=== PATIENT | female | born 1980 | race Hispanic/Latino ===

== ENCOUNTER 2022-08-09 10:57 | Emergency (ER) | payer OTHER ==
--- OUTSIDE RECORDS SUMMARY | 2022-08-09 11:01 | XMS REPORT | Continuity of Care Document ---
:1980 Author Organization [facility] t Address [address] [place] [address] Care Team Providers Name Role Phone No, Pcp [facility] Primary Care Physician Unavailable SHASHANK HENRY Attending Clinician Unavailable SHASHANK HENRY Admitting Clinician Unavailable Payers Payer Name Policy Type Policy Number Effective Date Expiration Date S ource Problems Condition Condition Condition Status Onset Resolution Last Treating Co mments Source Name Details Category Date Date Treatment Clinician Date Morbid Morbid Disease Recurre [facility] Symptomati Symptomati Disease [facility]is [facility] Hypothyroi Hypothyroi Disease Active [facility] dism dism 07[facility] Allergies, Adverse Reactions, Alerts Allergy Allergy Status Severity Reaction(s) Onset Inactive Treating Comm ents Source Name Type Date Date Clinician No Known DA Active [facility] NO KNOWN Allergy Active [facility] Social History Social Habit Start Date Stop Date Quantity Comments Source History of tobacco Occasional tobacco [facility] use smoker [facility] Alcohol intake 2018-07-24 2018-07-24 [facility]finding[facility] Medical Center History [facility] 2018-07-23 2018-07-[address] [facility] Alcohol Binge 00:00:00 00:00:[address] [facility] ter History [facility] 2018-07-23 2018-07-[address] [facility] Alcohol Frequency 00:00:00 00:00:00 Medical Center History [facility] 2018-07-23 2018-07-23 [address] [facility] Alcohol Std Drinks 00:00:00 00:00:00 [facility] Cigarettes smoked 2018-07-22 2018-07-22 [facility] current (pack per 00:00:00 00:00:00 Medical Center day) - Reported Tobacco use and 2018-07-22 2018-07-[address] [facility] exposure 00:00:00 00:00:00 non-user Medical Center Sex Assigned At [birth year] [facility] kes 00:00:00 00:00:00 Medical Center Smoking Status Start Date Stop Date Source Occasional tobacco smoker 2018-07-22 00:00:00 [facility] Medications Ordered Filled Start Stop Current Ordering Indication Dosage Frequency Signature Comments Components Source Medication Medication Date Date Medication? Clinician (SIG) Name Name levothyroxi Yes 125ug Take [address] ne 5-26 mcg by [facility] (SYNTHROID, 16:15: mouth Medic al LEVOTHROID) 46 Every Center 125 MCG morning on tablet an empty stomach. famotidine Yes 40mg QD Take [address] (PEPCID) 40 5-17 by mouth [facility] MG tablet 00:00: daily. Medica l [address] [place] [address] Immunizations Ordered Immunization Filled Immunization Date Status Commen ts Source Name Name Moderna COVID-19 Moderna COVID-19 2020-08-14 Completed Vaccine Vaccine 00:00:00 Moderna COVID-19 Moderna COVID-19 2020-07-17 Completed Vaccine Vaccine 00:00:00 Procedures This patient has no known procedures. Encounters Start End Encounter Admission Attending Care Care Encounter Source Date/Time Date/Time Type Type Clinicians Facility Department ID 2019-03-09 Inpatient [facility] [id number] [facility] 19:42:00 57 [facility] 2020-08-14 2020-08-14 Outpatient GCCOVIDV GCCOVIDV [id number] [facility] 00:00:00 00:00:00 V 2020-07-17 2020-07-17 Outpatient GCCOVIDV GCCOVIDV [id number] [facility]OVID 00:00:00 00:00:00 V Results Test Description Test Time Test Comments Results Result Comments Source UR HCG QUAL 2019-03-09 21:48:00 Test Item Value Reference Range Interpretation Comme nts UR HCG NEGATIVE This HCGQL test is NOT applicable for MALE patients.Check with QUAL nurse about pro bable order error.If Tumor Marker Test needed, nurse (test should order te st "HCGTU"(Test code = #550.30342)---- HCGQLU) - XR CHEST 2 [id number] 20:55:00 FAX: Hugh Scott MD [place]: [facility]: REG FAX: Mookie Claire [phone] Name: JUSTYN BONILLA [facility] : 1980 Age/S: 39/F [address] [facility] Unit #: [id number] Loc: [place] [address] Phys: Mookie Claire [employer]ELDER [employer]ILER[employer]KER Acct: [id number] Dis Date: Status: REG ER PHONE #: [phone] Exam Date: 03/09/20192024 FAX #: [phone] Reason: COUGH EXAMS: CPT CODE: [id number] XR CHEST 2 V 71059 HISTORY: COUGH TECHNIQUE: PA and lateral chest x-ray COMPARISON: 09/01/12 FINDINGS: No airspace consolidation or pleural effusion. Normal heart size. Mediastinal silhouette is unremarkable. Visualized osseous structures are grossly intact. IMPRESSION: No radiographic evidence of acute cardiopulmonary process. LOCATION: at 2054 Reported and signed by: Idania Jordan D.O. CC: Hugh Scott MD; Mookie Claire NP Technologist: STACIA CANTRELL RT(R) Trnscrd Date/Time/By: 03/09/2019 (2054) : By: [email or web address] Orig Print D/T: S: 03/09/2019 (2057) PAGE 1 Signed ReportFUNGUS CULTURE + [id number] 19:02:00 Test Item Value Reference Range Interpretation Comments CULTURE (BEAKER) (test No fungus isolated in code = 1095) 28 days FUNGUS SMEAR (BEAKER) No fungi seen (test code = 1406) TISSUE [id number] 13:39:00Surgical Pathology Report Case: [id number] Authorizing Provider: Lois Abbott MD Collected: 07/23/20182012 Ordering Location: [facility] PERIOPERATIVE Received: 07/24/2018 0823 SERVICES Pathologist: Hay Pedraza MD Specimen: Gallbladder GALLBLADDER, CHOLECYSTECTOMY: - ACUTE ON CHRONIC CHOLECYSTITIS, CHOLESTEROLOSIS, AND CHOLELITHIASIS Signing Pathologist Direct Phone Line: [phone] by Hay Pedraza MD on 07/31/2018 at 1:39 [id number] cholecystectomy, possible intraoperative ch olangiogram, open cholecystectomyThe specimen is received in a single part labeled with the patient's name, date of and accession Number all of which which match the information provided on the requisition slip. Received in formalin in a container labeled "gallbladder" is fragmented and surgically disrupted gallbladder (5.1 x 3.9 x 2.3 cm, 2.5 x 1.5 x 0.9, and 1.5 x 1.2 x 0.3 cm) and two green-brown gallstones, one spherical (1.9 cm in diameter) and one hexahedral (2.1 x 2.1 x 2.1 cm). The serosa of the disrupted gallbladder is significantly hyperemic and erythematous. It is impossible to tell how much of the injury is iatrogenic and how much is pathogenic. The presumed cystic duct margin and the hepatic bed both inked blue. On opening the mucosa is markedly hyperemic with an ulcer just proximal to the cystic duct. Civil Drafting Technician sections are submitted. The gallbladder wall is on average, 0.5 cm thick and without any lesions. Section code: A1, cystic duct margin and section of ulcer; A2, life assurance representative section of gallbladder wall. EC/plPerformed.BLOOD CULTURE 2018-07-31 02:00:00 Test Item Value Reference Range Interpretation Comments CULTURE (BEAKER) (test No growth in 5 days code = 1095) BLOOD [id number] 20:01:00 Test Item Value Reference Range Interpretation Comments CULTURE (BEAKER) (test No growth in 5 days code = 1095) SURGICALLY OBTAINED CULTURE + GRAM [id number] 10:04:00 Test Item Value Reference Range Interpretation Comments CULTURE (BEAKER) A 1+ Viridans (test code = Streptococcus 1095) GRAM STAIN 1+ White blood RESULT (BEAKER) cells seen (test code = 1123) GRAM STAIN 3+ gram positive RESULT (BEAKER) cocci in chains (test code = and pairs [id number]) ANAEROBIC [id number] 07:23:00 Test Item Value Reference Range Interpretation Comments CULTURE (BEAKER) (test No anaerobes isolated code = 1095) BASIC METABOLIC [id number] 06:20:00 Test Item Value Reference Range Interpretation Comments SODIUM (BEAKER) 140 meq/L 136-145 (test code = 381) POTASSIUM (BEAKER) 3.8 meq/L 3.5-5.1 (test code = 379) CHLORIDE (BEAKER) 107 meq/L 98-107 (test code = 382) CO2 (BEAKER) (test 26 meq/L 22-29 code = 355) BLOOD UREA NITROGEN 11 mg/dL 7-21 (BEAKER) (test code = 354) CREATININE (BEAKER) 0.78 mg/dL 0.57-1.25 (test code = 358) GLUCOSE RANDOM 80 mg/dL 70-105 (BEAKER) (test code = 652) CALCIUM (BEAKER) 8.7 mg/dL 8.4-10.2 (test code = 697) EGFR (BEAKER) (test 83 mL/min/1.73 ESTIMA KATHY GFR IS code = 1092) sq m NOT ACCURATE CREATININE CLEARANCE IN PREDICTING GLOMERULAR FILTRATION RATE . ESTIMATED GFR I S NOT APPLICABLE FOR DIALYSIS PATIEN TS. CBC W/PLT COUNT & AUTO [id number] 05:57:00 Test Item Value Reference Range Interpretation Comments WHITE BLOOD CELL COUNT (BEAKER) 9.9 K/ L 3.5-10.5 (test code = 775) RED BLOOD CELL COUNT (BEAKER) 3.15 M/ L 3.93-5.22 L (test code = 761) HEMOGLOBIN (BEAKER) (test code = 10.0 GM/DL 11.2-15.7 L 410) HEMATOCRIT (BEAKER) (test code = 31.2 % 34.1-44.9 L 411) MEAN CORPUSCULAR VOLUME (BEAKER) 99.0 fL 79.4-94.8 H (test code = 753) MEAN CORPUSCULAR HEMOGLOBIN 31.7 pg 25.6-32.2 (BEAKER) (test code = 751) MEAN CORPUSCULAR HEMOGLOBIN CONC 32.1 GM/DL 32.2-35.5 L (BEAKER) (test code = 752) RED CELL DISTRIBUTION WIDTH 13.2 % 11.7-14.4 (BEAKER) (test code = 412) PLATELET COUNT (BEAKER) (test 283 K/CU MM 150-450 code = 756) MEAN PLATELET VOLUME (BEAKER) 9.3 fL 9.4-12.3 L (test code = 754) NUCLEATED RED BLOOD CELLS 0 /100 WBC 0-0 (BEAKER) (test code = 413) NEUTROPHILS RELATIVE PERCENT 76 % (BEAKER) (test code = 429) LYMPHOCYTES RELATIVE PERCENT 16 % (BEAKER) (test code = 430) MONOCYTES RELATIVE PERCENT 6 % (BEAKER) (test code = 431) EOSINOPHILS RELATIVE PERCENT 2 % (BEAKER) (test code = 432) BASOPHILS RELATIVE PERCENT 0 % (BEAKER) (test code = 437) NEUTROPHILS ABSOLUTE COUNT 7.50 K/ L 1.56-6.13 H (BEAKER) (test code = 670) LYMPHOCYTES ABSOLUTE COUNT 1.54 K/ L 1.18-3.74 (BEAKER) (test code = 414) MONOCYTES ABSOLUTE COUNT (BEAKER) 0.60 K/ L 0.24-0.36 H (test code = 415) EOSINOPHILS ABSOLUTE COUNT 0.20 K/ L 0.04-0.36 (BEAKER) (test code = 416) BASOPHILS ABSOLUTE COUNT (BEAKER) 0.02 K/ L 0.01-0.08 (test code = 417) IMMATURE GRANULOCYTES-RELATIVE 1 % 0-1 PERCENT (BEAKER) (test code = 2801) VANCOMYCIN LEVEL, [id number] 06:14:00 Test Item Value Reference Range Interpretation Comments VANCOMYCIN TROUGH (BEAKER) (test 16.6 ug/mL 10.0-20.0 code = 522) RAD, CHEST, 1 VIEW, NON [id number] 08:07:00Reason for exam:->fever, r/o pneumoniaShould this be performed at the bedside?->YesFINAL REPORT CLINICAL HISTORY: fever, pneumonia TECHNIQUE: 1 view of the chest. COMPARISON: None IMPRESSION: There is a suspected patchy airspace opacity at the lateral left lung base, which may be compatible with the clinical history of pneumonia. There is minimal right basilar atelectasis. There is no significant pleural fluid. The cardiomediastinal silhouette is magnified by technique. Signed: Nas Mustafa MDReport Verified Date/Time: 07/26/2018 08:07:53 Reading Location: [facility] Radiology Reading Room [id number] 06:57:00 Test Item Value Reference Range Interpretation Comments PHOSPHORUS (BEAKER) (test code = 2.5 mg/dL 2.3-4.7 604) [id number] 06:57:00 Test Item Value Reference Range Interpretation Comments MAGNESIUM (BEAKER) (test code = 2.0 mg/dL 1.6-2.6 627) BASIC METABOLIC [id number] 06:57:00 Test Item Value Reference Range Interpretation Comments SODIUM (BEAKER) 137 meq/L 136-145 (test code = 381) POTASSIUM (BEAKER) 3.5 meq/L 3.5-5.1 (test code = 379) CHLORIDE (BEAKER) 104 meq/L 98-107 (test code = 382) CO2 (BEAKER) (test 25 meq/L 22-29 code = 355) BLOOD UREA NITROGEN 8 mg/dL 7-21 (BEAKER) (test code = 354) CREATININE (BEAKER) 0.79 mg/dL 0.57-1.25 (test code = 358) GLUCOSE RANDOM 94 mg/dL 70-105 (BEAKER) (test code = 652) CALCIUM (BEAKER) 8.8 mg/dL 8.4-10.2 (test code = 697) EGFR (BEAKER) (test 81 mL/min/1.73 ESTIMA KATHY GFR IS code = 1092) sq m NOT ACCURATE CREATININE CLEARANCE IN PREDICTING GLOMERULAR FILTRATION RATE . ESTIMATED GFR I S NOT APPLICABLE FOR DIALYSIS PATIEN TS. CBC W/PLT COUNT & AUTO [id number] 06:42:00 Test Item Value Reference Range Interpretation Comments WHITE BLOOD CELL COUNT (BEAKER) 10.0 K/ L 3.5-10.5 (test code = 775) RED BLOOD CELL COUNT (BEAKER) 3.33 M/ L 3.93-5.22 L (test code = 761) HEMOGLOBIN (BEAKER) (test code = 10.6 GM/DL 11.2-15.7 L 410) HEMATOCRIT (BEAKER) (test code = 32.4 % 34.1-44.9 L 411) MEAN CORPUSCULAR VOLUME (BEAKER) 97.3 fL 79.4-94.8 H (test code = 753) MEAN CORPUSCULAR HEMOGLOBIN 31.8 pg 25.6-32.2 (BEAKER) (test code = 751) MEAN CORPUSCULAR HEMOGLOBIN CONC 32.7 GM/DL 32.2-35.5 (BEAKER) (test code = 752) RED CELL DISTRIBUTION WIDTH 12.8 % 11.7-14.4 (BEAKER) (test code = 412) PLATELET COUNT (BEAKER) (test 235 K/CU MM 150-450 code = 756) MEAN PLATELET VOLUME (BEAKER) 9.4 fL 9.4-12.3 (test code = 754) NUCLEATED RED BLOOD CELLS 0 /100 WBC 0-0 (BEAKER) (test code = 413) NEUTROPHILS RELATIVE PERCENT 76 % (BEAKER) (test code = 429) LYMPHOCYTES RELATIVE PERCENT 15 % (BEAKER) (test code = 430) MONOCYTES RELATIVE PERCENT 7 % (BEAKER) (test code = 431) EOSINOPHILS RELATIVE PERCENT 1 % (BEAKER) (test code = 432) BASOPHILS RELATIVE PERCENT 0 % (BEAKER) (test code = 437) NEUTROPHILS ABSOLUTE COUNT 7.53 K/ L 1.56-6.13 H (BEAKER) (test code = 670) LYMPHOCYTES ABSOLUTE COUNT 1.52 K/ L 1.18-3.74 (BEAKER) (test code = 414) MONOCYTES ABSOLUTE COUNT (BEAKER) 0.70 K/ L 0.24-0.36 H (test code = 415) EOSINOPHILS ABSOLUTE COUNT 0.14 K/ L 0.04-0.36 (BEAKER) (test code = 416) BASOPHILS ABSOLUTE COUNT (BEAKER) 0.04 K/ L 0.01-0.08 (test code = 417) IMMATURE GRANULOCYTES-RELATIVE 1 % 0-1 PERCENT (BEAKER) (test code = 2801) URINALYSIS W/ REFLEX URINE [id number] 14:22:00 Test Item Value Reference Range Interpretation Comments COLOR (BEAKER) (test code = 470) Yellow CLARITY (BEAKER) (test code = 469) Clear SPECIFIC GRAVITY UA (BEAKER) (test 1.006 1.001-1.035 code = 468) PH UA (BEAKER) (test code = 467) 6.0 5.0-8.0 PROTEIN UA (BEAKER) (test code = Negative Negative 464) GLUCOSE UA (BEAKER) (test code = Negative Negative 365) KETONES UA (BEAKER) (test code = Negative Negative 371) BILIRUBIN UA (BEAKER) (test code = Negative Negative 462) BLOOD UA (BEAKER) (test code = 461) Negative Negative NITRITE UA (BEAKER) (test code = Negative Negative 465) LEUKOCYTE ESTERASE UA (BEAKER) Negative Negative (test code = 466) UROBILINOGEN UA (BEAKER) (test code 0.2 mg/dL 0.2-1.0 = 463) RBC UA (BEAKER) (test code = 519) < /HPF WBC UA (BEAKER) (test code = 520) < /HPF BACTERIA (BEAKER) (test code = 517) Few SQUAMOUS EPITHELIAL (BEAKER) (test 2 /HPF code = 516) SOURCE(BEAKER) (test code = 6904) CBC W/PLT COUNT & AUTO [id number] 06:45:00 Test Item Value Reference Range Interpretation Comments WHITE BLOOD CELL COUNT 11.6 K/ L 3.5-10.5 H (BEAKER) (test code = 775) RED BLOOD CELL COUNT 3.51 M/ L 3.93-5.22 L (BEAKER) (test code = 761) HEMOGLOBIN (BEAKER) 11.3 GM/DL 11.2-15.7 (test code = 410) HEMATOCRIT (BEAKER) 34.3 % 34.1-44.9 (test code = 411) MEAN CORPUSCULAR 97.7 fL 79.4-94.8 H Discordant result VOLUME (BEAKER) (test compar ed to previous code = 753) result; clinica l correlation required. MEAN CORPUSCULAR 32.2 pg 25.6-32.2 HEMOGLOBIN (BEAKER) (test code = 751) MEAN CORPUSCULAR 32.9 GM/DL 32.2-35.5 HEMOGLOBIN CONC (BEAKER) (test code = 752) RED CELL DISTRIBUTION 13.0 % 11.7-14.4 WIDTH (BEAKER) (test code = 412) PLATELET COUNT 195 K/CU MM 150-450 (BEAKER) (test code = 756) MEAN PLATELET VOLUME 9.4 fL 9.4-12.3 (BEAKER) (test code = 754) NUCLEATED RED BLOOD 0 /100 WBC 0-0 CELLS (BEAKER) (test code = 413) NEUTROPHILS RELATIVE 81 % PERCENT (BEAKER) (test code = 429) LYMPHOCYTES RELATIVE 11 % PERCENT (BEAKER) (test code = 430) MONOCYTES RELATIVE 8 % PERCENT (BEAKER) (test code = 431) EOSINOPHILS RELATIVE 0 % PERCENT (BEAKER) (test code = 432) BASOPHILS RELATIVE 0 % PERCENT (BEAKER) (test code = 437) NEUTROPHILS ABSOLUTE 9.31 K/ L 1.56-6.13 H COUNT (BEAKER) (test code = 670) LYMPHOCYTES ABSOLUTE 1.23 K/ L 1.18-3.74 COUNT (BEAKER) (test code = 414) MONOCYTES ABSOLUTE 0.89 K/ L 0.24-0.36 H COUNT (BEAKER) (test code = 415) EOSINOPHILS ABSOLUTE 0.04 K/ L 0.04-0.36 COUNT (BEAKER) (test code = 416) BASOPHILS ABSOLUTE 0.02 K/ L 0.01-0.08 COUNT (BEAKER) (test code = 417) IMMATURE 1 % 0-1 GRANULOCYTES-RELATIVE PERCENT (BEAKER) (test code = 2801) [id number] 05:53:00 Test Item Value Reference Range Interpretation Comments MAGNESIUM (BEAKER) (test code = 2.0 mg/dL 1.6-2.6 627) BASIC METABOLIC [id number] 05:53:00 Test Item Value Reference Range Interpretation Comments SODIUM (BEAKER) 131 meq/L 136-145 L (test code = 381) POTASSIUM (BEAKER) 3.8 meq/L 3.5-5.1 (test code = 379) CHLORIDE (BEAKER) 99 meq/L 98-107 (test code = 382) CO2 (BEAKER) (test 22 meq/L 22-29 code = 355) BLOOD UREA NITROGEN 10 mg/dL 7-21 (BEAKER) (test code = 354) CREATININE (BEAKER) 0.89 mg/dL 0.57-1.25 (test code = 358) GLUCOSE RANDOM 92 mg/dL 70-105 (BEAKER) (test code = 652) CALCIUM (BEAKER) 8.3 mg/dL 8.4-10.2 L (test code = 697) EGFR (BEAKER) (test 71 mL/min/1.73 ESTIMA KATHY GFR IS code = 1092) sq m NOT ACCURATE CREATININE CLEARANCE IN PREDICTING GLOMERULAR FILTRATION RATE . ESTIMATED GFR I S NOT APPLICABLE FOR DIALYSIS PATIEN TS. HEPATIC FUNCTION [id number] 05:53:00 Test Item Value Reference Range Interpretation Comments TOTAL PROTEIN (BEAKER) (test code = 6.8 gm/dL 6.0-8.3 770) ALBUMIN (BEAKER) (test code = 1145) 3.4 g/dL 3.5-5.0 L BILIRUBIN TOTAL (BEAKER) (test code 0.7 mg/dL 0.2-1.2 = 377) BILIRUBIN DIRECT (BEAKER) (test 0.3 mg/dL 0.1-0.5 code = 706) ALKALINE PHOSPHATASE (BEAKER) (test 62 U/L 40-150 code = 346) AST (SGOT) (BEAKER) (test code = 37 U/L 5-34 H 353) ALT (SGPT) (BEAKER) (test code = 26 U/L 6-55 347) CBC W/PLT COUNT & AUTO [id number] 05:21:00 Test Item Value Reference Range Interpretation Comments WHITE BLOOD CELL COUNT (BEAKER) 18.8 K/ L 3.5-10.5 H (test code = 775) RED BLOOD CELL COUNT (BEAKER) 1.73 M/ L 3.93-5.22 L (test code = 761) HEMOGLOBIN (BEAKER) (test code = 5.5 GM/DL 11.2-15.7 LL 410) HEMATOCRIT (BEAKER) (test code = 17.8 % 34.1-44.9 L 411) MEAN CORPUSCULAR VOLUME (BEAKER) 102.9 fL 79.4-94.8 H (test code = 753) MEAN CORPUSCULAR HEMOGLOBIN 31.8 pg 25.6-32.2 (BEAKER) (test code = 751) MEAN CORPUSCULAR HEMOGLOBIN CONC 30.9 GM/DL 32.2-35.5 L (BEAKER) (test code = 752) RED CELL DISTRIBUTION WIDTH 13.1 % 11.7-14.4 (BEAKER) (test code = 412) PLATELET COUNT (BEAKER) (test 164 K/CU MM 150-450 code = 756) MEAN PLATELET VOLUME (BEAKER) 10.7 fL 9.4-12.3 (test code = 754) NUCLEATED RED BLOOD CELLS 0 /100 WBC 0-0 (BEAKER) (test code = 413) NEUTROPHILS RELATIVE PERCENT 77 % (BEAKER) (test code = 429) LYMPHOCYTES RELATIVE PERCENT 15 % (BEAKER) (test code = 430) MONOCYTES RELATIVE PERCENT 7 % (BEAKER) (test code = 431) EOSINOPHILS RELATIVE PERCENT 0 % (BEAKER) (test code = 432) BASOPHILS RELATIVE PERCENT 0 % (BEAKER) (test code = 437) NEUTROPHILS ABSOLUTE COUNT 14.41 K/ L 1.56-6.13 H (BEAKER) (test code = 670) LYMPHOCYTES ABSOLUTE COUNT 2.79 K/ L 1.18-3.74 (BEAKER) (test code = 414) MONOCYTES ABSOLUTE COUNT (BEAKER) 1.30 K/ L 0.24-0.36 H (test code = 415) EOSINOPHILS ABSOLUTE COUNT 0.07 K/ L 0.04-0.36 (BEAKER) (test code = 416) BASOPHILS ABSOLUTE COUNT (BEAKER) 0.05 K/ L 0.01-0.08 (test code = 417) IMMATURE GRANULOCYTES-RELATIVE 1 % 0-1 PERCENT (BEAKER) (test code = 2801) BASIC METABOLIC [id number] 07:24:00 Test Item Value Reference Range Interpretation Comments SODIUM (BEAKER) 137 meq/L 136-145 (test code = 381) POTASSIUM (BEAKER) 4.5 meq/L 3.5-5.1 (test code = 379) CHLORIDE (BEAKER) 104 meq/L 98-107 (test code = 382) CO2 (BEAKER) (test 25 meq/L 22-29 code = 355) BLOOD UREA NITROGEN 10 mg/dL 7-21 (BEAKER) (test code = 354) CREATININE (BEAKER) 0.82 mg/dL 0.57-1.25 (test code = 358) GLUCOSE RANDOM 98 mg/dL 70-105 (BEAKER) (test code = 652) CALCIUM (BEAKER) 8.6 mg/dL 8.4-10.2 (test code = 697) EGFR (BEAKER) (test 78 mL/min/1.73 ESTIMA KATHY GFR IS code = 1092) sq m NOT ACCURATE CREATININE CLEARANCE IN PREDICTING GLOMERULAR FILTRATION RATE . ESTIMATED GFR I S NOT APPLICABLE FOR DIALYSIS PATIEN TS. HEPATIC FUNCTION [id number] 07:24:00 Test Item Value Reference Range Interpretation Comments TOTAL PROTEIN (BEAKER) (test code = 6.7 gm/dL 6.0-8.3 770) ALBUMIN (BEAKER) (test code = 1145) 3.5 g/dL 3.5-5.0 BILIRUBIN TOTAL (BEAKER) (test code 0.7 mg/dL 0.2-1.2 = 377) BILIRUBIN DIRECT (BEAKER) (test 0.4 mg/dL 0.1-0.5 code = 706) ALKALINE PHOSPHATASE (BEAKER) (test 54 U/L 40-150 code = 346) AST (SGOT) (BEAKER) (test code = 58 U/L 5-34 H 353) ALT (SGPT) (BEAKER) (test code = 40 U/L 6-55 347) [id number] 06:08:00 Test Item Value Reference Range Interpretation Comments MAGNESIUM (BEAKER) (test code = 1.4 mg/dL 1.6-2.6 L 627) CBC W/PLT COUNT & AUTO [id number] 05:22:00 Test Item Value Reference Range Interpretation Comments WHITE BLOOD CELL COUNT (BEAKER) 16.5 K/ L 3.5-10.5 H (test code = 775) RED BLOOD CELL COUNT (BEAKER) 3.81 M/ L 3.93-5.22 L (test code = 761) HEMOGLOBIN (BEAKER) (test code = 12.2 GM/DL 11.2-15.7 410) HEMATOCRIT (BEAKER) (test code = 37.5 % 34.1-44.9 411) MEAN CORPUSCULAR VOLUME (BEAKER) 98.4 fL 79.4-94.8 H (test code = 753) MEAN CORPUSCULAR HEMOGLOBIN 32.0 pg 25.6-32.2 (BEAKER) (test code = 751) MEAN CORPUSCULAR HEMOGLOBIN CONC 32.5 GM/DL 32.2-35.5 (BEAKER) (test code = 752) RED CELL DISTRIBUTION WIDTH 13.1 % 11.7-14.4 (BEAKER) (test code = 412) PLATELET COUNT (BEAKER) (test 210 K/CU MM 150-450 code = 756) MEAN PLATELET VOLUME (BEAKER) 9.6 fL 9.4-12.3 (test code = 754) NUCLEATED RED BLOOD CELLS 0 /100 WBC 0-0 (BEAKER) (test code = 413) NEUTROPHILS RELATIVE PERCENT 89 % (BEAKER) (test code = 429) LYMPHOCYTES RELATIVE PERCENT 5 % (BEAKER) (test code = 430) MONOCYTES RELATIVE PERCENT 5 % (BEAKER) (test code = 431) EOSINOPHILS RELATIVE PERCENT 0 % (BEAKER) (test code = 432) BASOPHILS RELATIVE PERCENT 0 % (BEAKER) (test code = 437) NEUTROPHILS ABSOLUTE COUNT 14.70 K/ L 1.56-6.13 H (BEAKER) (test code = 670) LYMPHOCYTES ABSOLUTE COUNT 0.81 K/ L 1.18-3.74 L (BEAKER) (test code = 414) MONOCYTES ABSOLUTE COUNT (BEAKER) 0.82 K/ L 0.24-0.36 H (test code = 415) EOSINOPHILS ABSOLUTE COUNT 0.00 K/ L 0.04-0.36 L (BEAKER) (test code = 416) BASOPHILS ABSOLUTE COUNT (BEAKER) 0.01 K/ L 0.01-0.08 (test code = 417) IMMATURE GRANULOCYTES-RELATIVE 1 % 0-1 PERCENT (BEAKER) (test code = 2801) SCREEN, [id number] 11:31:00 Test Item Value Reference Range Interpretation Comments TEST URINE (BEAKER) (test Negative code = 583) HEMOGLOBIN [id number] 09:37:00 Test Item Value Reference Range Interpretation Comments HEMOGLOBIN A1C (BEAKER) (test code = 5.5 % 4.3-6.1 368) [id number] 08:34:00 Test Item Value Reference Range Interpretation Comments MAGNESIUM (BEAKER) (test code = 1.6 mg/dL 1.6-2.6 627) BASIC METABOLIC [id number] 08:34:00 Test Item Value Reference Range Interpretation Comments SODIUM (BEAKER) 135 meq/L 136-145 L (test code = 381) POTASSIUM (BEAKER) 4.3 meq/L 3.5-5.1 (test code = 379) CHLORIDE (BEAKER) 103 meq/L 98-107 (test code = 382) CO2 (BEAKER) (test 24 meq/L 22-29 code = 355) BLOOD UREA NITROGEN 7 mg/dL 7-21 (BEAKER) (test code = 354) CREATININE (BEAKER) 0.77 mg/dL 0.57-1.25 (test code = 358) GLUCOSE RANDOM 123 mg/dL 70-105 H (BEAKER) (test code = 652) CALCIUM (BEAKER) 9.3 mg/dL 8.4-10.2 (test code = 697) EGFR (BEAKER) (test 84 mL/min/1.73 ESTIMA KATHY GFR IS code = 1092) sq m NOT ACCURATE CREATININE CLEARANCE IN PREDICTING GLOMERULAR FILTRATION RATE . ESTIMATED GFR I S NOT APPLICABLE FOR DIALYSIS PATIEN TS. LIPID [id number] 08:34:00 Test Item Value Reference Range Interpretation Comments TRIGLYCERIDES (BEAKER) (test code = 40 mg/dL 540) CHOLESTEROL (BEAKER) (test code = 145 mg/dL 631) HDL CHOLESTEROL (BEAKER) (test code 61 mg/dL = 976) LDL CHOLESTEROL CALCULATED (BEAKER) 76 mg/dL (test code = 633) Triglyceride Reference Range: Low Risk <150 Borderline 150-199 High Risk 200- 499 Very High Risk >=500Cholesterol Reference Range: Low Risk <200 Borderline 200-239 High Risk >240HDL Cholesterol Reference Range: Low Risk >=60 High Risk <40LDL Cholesterol Reference Range: Optimal <100 Near Optimal 100-129 Borderline 130-159 High 160-189 Very High >=190HEPATIC FUNCTION [id number] 08:34:00 Test Item Value Reference Range Interpretation Comments TOTAL PROTEIN (BEAKER) (test code = 7.5 gm/dL 6.0-8.3 770) ALBUMIN (BEAKER) (test code = 1145) 4.0 g/dL 3.5-5.0 BILIRUBIN TOTAL (BEAKER) (test code 0.6 mg/dL 0.2-1.2 = 377) BILIRUBIN DIRECT (BEAKER) (test 0.2 mg/dL 0.1-0.5 code = 706) ALKALINE PHOSPHATASE (BEAKER) (test 63 U/L 40-150 code = 346) AST (SGOT) (BEAKER) (test code = 18 U/L 5-34 353) ALT (SGPT) (BEAKER) (test code = 14 U/L 6-55 347) CBC W/PLT COUNT & AUTO [id number] 06:33:00 Test Item Value Reference Range Interpretation Comments WHITE BLOOD CELL COUNT (BEAKER) 12.0 K/ L 3.5-10.5 H (test code = 775) RED BLOOD CELL COUNT (BEAKER) 4.13 M/ L 3.93-5.22 (test code = 761) HEMOGLOBIN (BEAKER) (test code = 13.2 GM/DL 11.2-15.7 410) HEMATOCRIT (BEAKER) (test code = 39.4 % 34.1-44.9 411) MEAN CORPUSCULAR VOLUME (BEAKER) 95.4 fL 79.4-94.8 H (test code = 753) MEAN CORPUSCULAR HEMOGLOBIN 32.0 pg 25.6-32.2 (BEAKER) (test code = 751) MEAN CORPUSCULAR HEMOGLOBIN CONC 33.5 GM/DL 32.2-35.5 (BEAKER) (test code = 752) RED CELL DISTRIBUTION WIDTH 13.0 % 11.7-14.4 (BEAKER) (test code = 412) PLATELET COUNT (BEAKER) (test 258 K/CU MM 150-450 code = 756) MEAN PLATELET VOLUME (BEAKER) 9.5 fL 9.4-12.3 (test code = 754) NUCLEATED RED BLOOD CELLS 0 /100 WBC 0-0 (BEAKER) (test code = 413) NEUTROPHILS RELATIVE PERCENT 82 % (BEAKER) (test code = 429) LYMPHOCYTES RELATIVE PERCENT 10 % (BEAKER) (test code = 430) MONOCYTES RELATIVE PERCENT 6 % (BEAKER) (test code = 431) EOSINOPHILS RELATIVE PERCENT 1 % (BEAKER) (test code = 432) BASOPHILS RELATIVE PERCENT 0 % (BEAKER) (test code = 437) NEUTROPHILS ABSOLUTE COUNT 9.88 K/ L 1.56-6.13 H (BEAKER) (test code = 670) LYMPHOCYTES ABSOLUTE COUNT 1.22 K/ L 1.18-3.74 (BEAKER) (test code = 414) MONOCYTES ABSOLUTE COUNT (BEAKER) 0.74 K/ L 0.24-0.36 H (test code = 415) EOSINOPHILS ABSOLUTE COUNT 0.09 K/ L 0.04-0.36 (BEAKER) (test code = 416) BASOPHILS ABSOLUTE COUNT (BEAKER) 0.02 K/ L 0.01-0.08 (test code = 417) IMMATURE GRANULOCYTES-RELATIVE 0 % 0-1 PERCENT (BEAKER) (test code = 2801) U/S, ABDOMINAL, [id number] 21:04:00Abdomen limited area? Add comment if clarification is needed.->Gall BladderReason for exam:->evaluate for cholecystitisFINAL REPORT Exam: Limited abdominal ultrasound. Clinical History: Abdominal pain. Comparison: No prior study for direct comparison. Findings: Sonographic evaluation of the right upper quadrant of the abdomen was performed. The study is limited due to excessive bowel gas. The study was prematurely terminated of the the patient refused to continue. Liver: 17.1 cm in length at the right midclavicular line. Diffusely echogenic. No definite lesion is identified by ultrasound. Patentmain portal vein with hepatopetal flow. Biliary tree: Not imaged. Gallbladder: 2.6 cm mobile shadowing stone. Top normal gallbladder wall thickness, nonspecific. No pericholecystic fluid. Positive sonographic Hernandez's sign. Pancreas: Obscured by bowel gas. Ascites: None seen. Right kidney: Not imaged.IVC/Aorta: Obscured by bowel gas. Impression:Limited exam due to premature termination and excessivebowel gas.Cholelithiasis and positive sonographic Hernandez's sign which may represent acute cholecystitis in the proper clinical setting. A HIDA scan may be performed to evaluate for cystic patency as clinically warranted.Mild hepatomegaly. Diffusely echogenic liver which may represent parenchymal disease such as steatosis. Signed: Chelsy Millereport Verified Date/Time: 07/22/2018 21:04:24 Reading Location: [facility] C013Y CT Body Reading Room PROTHROMBIN TIME/INR 2018-07-22 19:02:00 Test Item Value Reference Range Interpretation Comments PROTIME (BEAKER) (test code = 13.1 seconds 11.7-14.7 759) INR (BEAKER) (test code = 370) 1.0 <=5.9 RECOMMENDED COUMADIN/WARFARIN INR THERAPY RANGESSTANDARD DOSE: 2.0 - 3.0 Includes: PROPHYLAXIS for venous thrombosis, systemic embolization; TREATMENT for venous thrombosis and/or pulmonary embolus.HIGH RISK: Target INR is 2.5-3.5 for patients with mechanical heart valves. Notes Date/Time Note Provider Source 2019-03-09 20:02:00-00:00 [facility] ([facility]) EMERGENCY PROVIDER REPORT REPORT#:[id number] REPORT STATUS: Signed DATE:03/09/19 TIME: 2001 PATIENT: JUSTYN BONILLA UNIT #: [id number] ROOM/BED: AGE: 39 SEX: F PCP PHYS: No Primary or Family Ph ysician SERVICE AUTHOR: Mookie Claire NP * ALL edits or amendments must be made on the [employer]/computer document * HPI-URI/Cough/Cold General Confirmed Patient Yes Patient Type New patient Initial Greet Date/Time 03/09/191943 PCP NONE Presentation Chief Complaint Cough, non-p roductive, Nasal congestion, Runny nose, Upper resp infection Hx Obtained From Patient Severity: Current No pain currently Context Immunization Status General All up to date /Sexual Hx Last Menstrual Period 03/06/04 (JUST STOPPED IN 2004) Free Text HPI Notes Free Text HPI Notes Patient with complaint of co ugh, nasal congestion, and runny nose on and off x3 days. Denies any fever, rash, abdominal pain, na usea/vomiting/diarrhea, chest pain, shortness of breath, dysuria, headache, or any swelling. Review of Systems ROS Statements All systems rev neg except as marked. Basic Review of Systems Basic ROS CV: No chest pain, : No dysuria/frequency, MS: No ext swelling/pain, HEM: No bleeding/bruising, PSYCH: NL thought con tent Focused Review of Systems Ears/Nose/Throat Reports: Nasal congestion. Respiratory Reports: Cough, non-producti ve. Denies: Cough, productive, Dyspnea on exertion, Hemoptysis, Parox nocturnal dyspnea, Pleuritic p ain, Shortness of breath, Wheezing. Past Medical History - Adult Stated Complaint COUGHING Allergies Coded Allergies: No Known Allergies (09/01/12) Home Medications Reported Medications LEVOTHYROXINE (LEVOTHROID) 100 MCG PO DAILY LEVOTHYROXINE (LEVOTHROID) 125 MCG PO DAILY Review of Nursing Notes Unavailable at this time Pt reports no significant: Family history, Socia l history Past Medical History: Reports: Thyroid disorder. Past Surgical History: Reports: Cholecystectomy. Alcohol Use Denies EtOH use Drug Use Denies recreational drugs Smoking status for patients 13 years old or olde r: Current every day smoker Pack years (pk/d)*(yrs): 15 Date last smoked: still smoking Ambulatory Status Independent Physical Exam Vital Signs Vital Signs First Documented: Result Date Time Pulse Ox 100 03/09 1943 B/P 138/94 03/09 1943 B/P Mean 108 03/09 1943 O2 Delivery Room air 03/09 1943 Temp 36.9 03/09 1943 Pulse 72 03/09 1943 Resp 18 03/09 1943 FiO2 21 03/09 2153 Last Documented: Result Date Time Pulse Ox 96 03/09 2240 B/P 132/67 03/09 2240 B/P Mean 88 03/09 2240 O2 Delivery Room air 03/09 2240 Temp 37.2 03/09 2240 Pulse 70 03/09 2240 Resp 18 03/09 2240 FiO2 21 03/09 2153 Review of Vital Signs Reviewed Basic Physical Exam Basic PE HEAD: Atraumatic/NC, EYES: PERRL, conj clear, NECK: Supple, CV: Reg rate rhythm, ABD: Soft/non-tender, EXT: No gross abnormality, SKIN: No rashes, warm/dry, NEURO: alert oriented, NEURO: gross mo vement NL, PSYCH: NL thought content Focused PE General/Const General/Const Awake, Alert, Well appearing, Not toxic appearing Eyes Eyes PERRL Ears/Nose/Throat Ears/Nose/Throat Atraumatic, Airway patent, Muc ous membranes moist, No peritonsillar abscess, No po oling of secretions, No trismus, Tympanic membs NL, Ext aud canal NL, Mastoid ar ea NL, No sinus tenderness, No facial swelling, Gums /dentition NL Pharynx/Tonsils/Uvula Pharyngeal erythema (COBBLESTONE APPERENCE). Ne gative: Tonsillar erythema R, Tonsillar erythema L, Tonsillar exudate R, Tonsi llar exudate L, Tonsillar swelling R, Tonsillar swelling L, Peritonsil abs cess R, Peritonsil abscess L, Trismus present, Epiglottis enlarged, Epiglottis erythematous, Uvula deviated R, Uvula deviated L, Uvula edematous, Uvula enlarge d, Uvula erythematous. Nose Rhinorrhea, Turbinates swollen. MS Neck Neck Supple, No meningismus, Full range of motion, No adenopathy, No swelling , Non-tender Resp/Chest Respiratory/Chest Atraumatic, Breath so unds = bilat, No respiratory distress, No rales, No rhonchi, No ret ractions, No stridor, No chest tenderness, No chest wall deformity, No crepitus Wheezing/Retractions Wheezing expiratory, Wheezing mild. Cardiovascular Cardiovascular Heart rate NL, Regular rhythm, H eart sounds NL, Peripheral circulation NL Abdomen/GI Abdomen/GI Soft, Non-tender, No guarding, No re bound Skin Skin Color NL, No rash, Warm, Dry, Turgor NL Neurologic Neurologic Oriented X3, Speech NL, No motor def icits, No sensory deficits Interpretation Diagnostics Lab Results Interpretation Results Laboratory Tests: 03/09 2029 Urines Urine HCG, Qual NEGATIVE Microbiology: Date/Time Procedure - Status Source Growth 03/09 2114 Influenza Virus Type B Antigen - COM P NASAL 03/09 2114 Influenza Virus Type A Antigen - COM P NASAL Recent Impressions: RADIOLOGY - XR CHEST 2 V 03/09 2019 Report Impression - Status: SIGNED Entered: 03/09/20192057 IMPRESSION: No radiographic evidence of acute cardiopulmonar y process. LOCATION: [facility] Impression By: Ines Jordan D.O. Lab Imaging Statement Laboratory radiographic studies reviewed and con sidered in the medical decision-making. Point of Care Testing Micro Interpretation Influenza rapid - neg Pulse Oximetry Pulse Ox % 100 On: Room air Interpretation Interpreted by me, Pulse oximetr y normal Time 1943 Re-Evaluation MDM Re-Evaluation/Progress Re-Evaluation/Progress Text/Dict Note Wheezing resolved. Patient nontoxic appe aring. Patient reports feeling better. Explained in depth to patient on imaging, labs, and discharge instructions. Patient understands need to follow-up [facility] PCP. Patient ready to leave, return precautions given. Time of Re-Eval 2227 Exam Post Tx - General Active, Alert, Appears n on-toxic, Appears well, Vital signs stable, Capillary refill normal, Hydration normal Exam Post Tx - Sys Review Lungs clear, Wheezing resolved Plan Post Re-Eval Plan discharge URI/Flu Adult MDM Note The patient is now resting c omfortably, is alert and in no distress. The patient has a normal mental status and is neurologically intact. The patient appears well and is able to tolerate food or fluid by mouth, and there is no significant dehydration. There is no res piratory distress and no signs of systemic toxicity. The history, exam, diagnostic testing (if any) a nd current condition do not demonstrate an infectious process such as mening itis, severe pneumonia, retropharyngeal abscess, epiglottitis, sepsis or other serious bacterial infection requiring further testing, treatment, consultation, or admission at this time. The vital signs have been sta ble. The patient's condition is stable and appropriate for discharge. The patient will pursue further outpatient evaluation with the primary care physician or ot her designated or consulting physician as indicated in the discharge instruct ions. ED Course Time 2227 Patient Course Stable Medication(s) Ordered Medication(s) Ordered: Autonomic Drugs Sig/Christina Start time Last Medication Dose Route Stop Time Status Admin Albuterol/Ipratropium 6 ML X1ED STA 03/09 1999 DC 03/09 INH 03/09 2000 213 Hormones And Synthetic Substit Sig/Christina Start time Last Medication Dose Route Stop Time Status Admin Methylprednisolone 125 MG X1ED STA 03/09 1999 D C 03/09 Sodium Succinate IM 03/09 2000 212 Safety Concerns Patient is safe Patient Discharge Departure Vital Signs/Condition Vital Signs First Documented: Result Date Time Pulse Ox 100 03/09 1943 B/P 138/94 03/09 1943 B/P Mean 108 03/09 1943 O2 Delivery Room air 03/09 1943 Temp 36.9 03/09 1943 Pulse 72 03/09 1943 Resp 18 03/09 1943 FiO2 21 03/09 215 Last Documented: Result Date Time Pulse Ox 96 03/09 2240 B/P 132/67 03/09 2240 B/P Mean 88 03/09 2240 O2 Delivery Room air 03/09 2240 Temp 37.2 03/09 2240 Pulse 70 03/09 2240 Resp 18 03/09 2240 FiO2 21 03/09 215 All vital signs available at the time of this en try have been reviewed. Condition Stable Clinical Impression Clinical Impression Primary Impression: Bronchitis Disposition Decision Discharge )( Discharged to Home Yes )( Time 2228 )( Date 03/09/19 Discharge/Care Plan Counseled Regarding Diagnosi s, Lab results, Imaging studies, Prescriptions, Need for follow-up, When to return to ED Prescriptions Cetirizine, albuterol HFA, prednisone Prescriptions Reviewed Risks, Benefits, Alternat opal treatment Discharge Note I have spoken with the patie nt and/or caregivers. I have explained the patient's condition, diagnoses and courtney atment plan based on the information available to me at this time. I have answered the patient's and/ or caregiver's questions and addressed any concerns. The patient and/or careg megha have as good an understanding of the patient 's diagnosis, condition and treatment plan as can be expected at this point. The vital signs have bee n stable. The patient's condition is stable and appr opriate for discharge from the emergency department. The patient will pursue further outpatient evalu ation with the primary care physician or other designated or consulting phys ician as outlined in the discharge instructions. The patient and/or caregivers are agreeable to this plan of care and follow-up instructions have been exp lained in detail. The patient and/or caregivers have received these instructio ns in written format and have expressed an understanding of the discharge inst ructions. The patient and/or caregivers are aware that any significant change in condition or worsening of symptoms should prompt an immediate return to [facility] or the closest emergency department or a call to 911. Quality Measures BP F/U for HTN Referred for BP f/u < 4wk, F/u wi PCP/other doc Smoking Cessation Screened, tobacco user, Tobacc o cess intervention Electronically Signed by Mookie Claire NP o n 03/10/19 at 1505 RPT #:[id number] END OF REPORT 2019-03-09 20:02:00-00:00 [facility] ([facility]) EMERGENCY PROVIDER REPORT REPORT#:[id number] REPORT STATUS: Signed DATE:03/09/19 TIME: 2001 PATIENT: JUSTYN BONILLA UNIT #: [id number] ROOM/BED: AGE: 39 SEX: F PCP PHYS: No Primary or Family Ph ysician SERVICE AUTHOR: Mookie Claire NP * ALL edits or amendments must be made on the [employer]/computer document * Mookie Claire 03/09/19 2002: HPI-URI/Cough/Cold General Confirmed Patient Yes Patient Type New patient PCP NONE Presentation Chief Complaint Cough, non-p roductive, Nasal congestion, Runny nose, Upper resp infection Hx Obtained From Patient Severity: Current No pain currently Context Immunization Status General All up to date /Sexual Hx Last Menstrual Period 03/06/04 (JUST STOPPED IN 2004) Free Text HPI Notes Free Text HPI Notes Patient with complaint of co ugh, nasal congestion, and runny nose on and off x3 days. Denies any fever, rash, abdominal pain, na usea/vomiting/diarrhea, chest pain, shortness of breath, dysuria, headache, or any swelling. Review of Systems ROS Statements All systems rev neg except as marked. Basic Review of Systems Basic ROS CV: No chest pain, : No dysuria/frequency, MS: No ext swelling/pain, HEM: No bleeding/bruising, PSYCH: NL thought con tent Focused Review of Systems Ears/Nose/Throat Reports: Nasal congestion. Respiratory Reports: Cough, non-producti ve. Denies: Cough, productive, Dyspnea on exertion, Hemoptysis, Parox nocturnal dyspnea, Pleuritic p ain, Shortness of breath, Wheezing. Past Medical History - Adult Stated Complaint COUGHING Allergies Coded Allergies: No Known Allergies (09/01/12) Home Medications Reported Medications LEVOTHYROXINE (LEVOTHROID) 100 MCG PO DAILY LEVOTHYROXINE (LEVOTHROID) 125 MCG PO DAILY Review of Nursing Notes Unavailable at this time Pt reports no significant: Family history, Socia l history Past Medical History: Reports: Thyroid disorder. Past Surgical History: Reports: Cholecystectomy. Alcohol Use Denies EtOH use Drug Use Denies recreational drugs Smoking status for patients 13 years old or olde r: Current every day smoker Pack years (pk/d)*(yrs): 15 Date last smoked: still smoking Ambulatory Status Independent Physical Exam Vital Signs Vital Signs First Documented: Result Date Time Pulse Ox 100 03/09 1943 B/P 138/94 03/09 1943 B/P Mean 108 03/09 1943 O2 Delivery Room air 03/09 1943 Temp 36.9 03/09 1943 Pulse 72 03/09 1943 Resp 18 03/09 1943 FiO2 21 03/09 2153 Last Documented: Result Date Time Pulse Ox 96 03/09 2240 B/P 132/67 03/09 2240 B/P Mean 88 03/09 2240 O2 Delivery Room air 03/09 2240 Temp 37.2 03/09 2240 Pulse 70 03/09 2240 Resp 18 03/09 2240 FiO2 21 03/09 2153 Review of Vital Signs Reviewed Basic Physical Exam Basic PE HEAD: Atraumatic/NC, EYES: PERRL, conj clear, NECK: Supple, CV: Reg rate rhythm, ABD: Soft/non-tender, EXT: No gross abnormality, SKIN: No rashes, warm/dry, NEURO: alert oriented, NEURO: gross mo vement NL, PSYCH: NL thought content Focused PE General/Const General/Const Awake, Alert, Well appearing, Not toxic appearing Eyes Eyes PERRL Ears/Nose/Throat Ears/Nose/Throat Atraumatic, Airway patent, Muc ous membranes moist, No peritonsillar abscess, No po oling of secretions, No trismus, Tympanic membs NL, Ext aud canal NL, Mastoid ar ea NL, No sinus tenderness, No facial swelling, Gums /dentition NL Pharynx/Tonsils/Uvula Pharyngeal erythema (COBBLESTONE APPERENCE). Ne gative: Tonsillar erythema R, Tonsillar erythema L, Tonsillar exudate R, Tonsi llar exudate L, Tonsillar swelling R, Tonsillar swelling L, Peritonsil abs cess R, Peritonsil abscess L, Trismus present, Epiglottis enlarged, Epiglottis erythematous, Uvula deviated R, Uvula deviated L, Uvula edematous, Uvula enlarge d, Uvula erythematous. Nose Rhinorrhea, Turbinates swollen. MS Neck Neck Supple, No meningismus, Full range of motion, No adenopathy, No swelling , Non-tender Resp/Chest Respiratory/Chest Atraumatic, Breath so unds = bilat, No respiratory distress, No rales, No rhonchi, No ret ractions, No stridor, No chest tenderness, No chest wall deformity, No crepitus Wheezing/Retractions Wheezing expiratory, Wheezing mild. Cardiovascular Cardiovascular Heart rate NL, Regular rhythm, H eart sounds NL, Peripheral circulation NL Abdomen/GI Abdomen/GI Soft, Non-tender, No guarding, No re bound Skin Skin Color NL, No rash, Warm, Dry, Turgor NL Neurologic Neurologic Oriented X3, Speech NL, No motor de ficits, No sensory deficits Interpretation Diagnostics Lab Results Interpretation Results Laboratory Tests: 03/09 2029 Urines Urine HCG, Qual NEGATIVE Microbiology: Date/Time Procedure - Status Source Growth 03/09 2114 Influenza Virus Type B Antigen - COM P NASAL 03/09 2114 Influenza Virus Type A Antigen - COM P NASAL Recent Impressions: RADIOLOGY - XR CHEST 2 V 03/09 2019 Report Impression - Status: SIGNED Entered: 03/09/20192057 IMPRESSION: No radiographic evidence of acute cardiopulmonar y process. LOCATION: Impression By: Ines - Idania Nikki D.OWili Lab Imaging Statement Laboratory radiographic studies reviewed and con sidered in the medical decision-making. Point of Care Testing Micro Interpretation Influenza rapid - neg Pulse Oximetry Pulse Ox % 100 On: Room air Interpretation Interpreted by me, Pulse oximetr y normal Time 1943 Re-Evaluation MDM Re-Evaluation/Progress Re-Evaluation/Progress Text/Dict Note Wheezing resolved. Patient nontoxic appe aring. Patient reports feeling better. Explained in depth to patient on imaging, labs, and discharge instructions. Patient understands need to follow-up wi th PCP. Patient ready to leave, return precautions given. Time of Re-Eval 2227 Exam Post Tx - General Active, Alert, Appears n on-toxic, Appears well, Vital signs stable, Capillary refill normal, Hydration normal Exam Post Tx - Sys Review Lungs clear, Wheezing resolved Plan Post Re-Eval Plan discharge URI/Flu Adult MDM Note The patient is now resting c omfortably, is alert and in no distress. The patient has a normal mental status and is neurologically intact. The patient appears well and is able to tolerate food or fluid by mouth, and there is no significant dehydration. There is no res piratory distress and no signs of systemic toxicity. The history, exam, diagnostic testing (if any) a nd current condition do not demonstrate an infectious process such as mening itis, severe pneumonia, retropharyngeal abscess, epiglottitis, sepsis or other serious bacterial infection requiring further testing, treatment, consultation, or admission at this time. The vital signs have been sta ble. The patient's condition is stable and appropriate for discharge. The patient will pursue further outpatient evaluation with the primary care physician or ot her designated or consulting physician as indicated in the discharge instruct ions. ED Course Time 2227 Patient Course Stable Medication(s) Ordered Medication(s) Ordered: Autonomic Drugs Sig/Christina Start time Last Medication Dose Route Stop Time Status Admin Albuterol/Ipratropium 6 ML X1ED STA 03/09 1999 DC 03/09 INH 03/09 2000 213 Hormones And Synthetic Substit Sig/Christina Start time Last Medication Dose Route Stop Time Status Admin Methylprednisolone 125 MG X1ED STA 03/09 1999 D C 03/09 Sodium Succinate IM 03/09 Safety Concerns Patient is safe Patient Discharge Departure Vital Signs/Condition Vital Signs First Documented: Result Date Time Pulse Ox 100 03/09 1943 B/P 138/94 03/09 1943 B/P Mean 108 03/09 1943 O2 Delivery Room air 03/09 1943 Temp 36.9 03/09 1943 Pulse 72 03/09 1943 Resp 18 03/09 1943 FiO2 21 03/09 2153 Last Documented: Result Date Time Pulse Ox 96 03/09 2240 B/P 132/67 03/09 2240 B/P Mean 88 03/09 2240 O2 Delivery Room air 03/09 2240 Temp 37.2 03/09 2240 Pulse 70 03/09 2240 Resp 18 03/09 2240 FiO2 21 03/09 2153 All vital signs available at the time of this en try have been reviewed. Condition Stable Clinical Impression Clinical Impression Primary Impression: Bronchitis Disposition Decision Discharge )( Discharged to Home Yes )( Time 2228 )( Date 03/09/19 Discharge/Care Plan Counseled Regarding Diagnosi s, Lab results, Imaging studies, Prescriptions, Need for follow-up, When to return to ED Prescriptions Cetirizine, albuterol HFA, prednisone Prescriptions Reviewed Risks, Benefits, Alternat opal treatment Discharge Note I have spoken with the patie nt and/or caregivers. I have explained the patient's condition, diagnoses and courtney atment plan based on the information available to me at this time. I have answered the patient's and/ or caregiver's questions and addressed any concerns. The patient and/or careg megha have as good an understanding of the patient 's diagnosis, condition and treatment plan as can be expected at this point. The vital signs have bee n stable. The patient's condition is stable and appr opriate for discharge from the emergency department. The patient will pursue further outpatient evalu ation with the primary care physician or other designated or consulting phys ician as outlined in the discharge instructions. The patient and/or caregivers are agreeable to this plan of care and follow-up instructions have been exp lained in detail. The patient and/or caregivers have received these instructio ns in written format and have expressed an understanding of the discharge inst ructions. The patient and/or caregivers are aware that any significant change in condition or worsening of symptoms should prompt an immediate return to [facility] or the closest emergency department or a call to 911. 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 I was available for consultation as needed at al l times during the patient's visit in the emergency department. I agree with the clinical impression , plan and disposition. Electronically Signed by Mookie Claire NP o n 03/10/19 at 1505 Electronically Signed by Hugh Scott MD on 03/11 at 0011 RPT #:[id number] END OF REPORT
[2022-08-09 12:12] LABS: Lymphocytes % 24.1 % (15.3-44.8); MCV 93.8 fL (80-100); RBC Red Blood Cell Count 4.26 M/uL (3.86-4.86)
[2022-08-09] MEDS ORDERED: ONDANSETRON 4 MG/2 ML VIAL ONE (12:18)
[2022-08-09] MEDS ORDERED: NA CHLORIDE 0.9% 1,000 ML ONE (12:18)
[2022-08-09 12:24] LABS: SARS-CoV-2 Antigen Rapid Res Negative (Negative)
[2022-08-09 12:28] LABS: Albumin 3.6 g/dL (3.4-5.0); Bilirubin Total 0.4 mg/dL (0.2-1.0); Potassium 3.6 mEq/L (3.5-5.1); Protein, Total 7.8 g/dL (6.4-8.2)
--- NOTE | 2022-08-09 13:08 | RAD REPORT ---
EXAM DESCRIPTION: CTAbdomen Pelvis W Contrast - 08/09/2022 12:51 pm CLINICAL HISTORY: Abdominal pain. LLQ abd pain;Abd pain COMPARISON: No comparisons TECHNIQUE: Biphasic CT imaging of the abdomen and pelvis was performed with 100 ml non-ionic IV cont rast. All CT scans are performed using dose optimization technique as appropriate and may include automated exposure control or mA/KV adjustment according to patient size. FINDINGS: The lung bases are clear. The liver, spleen, pancreas, adrenal glands and kidneys are within normal limits. Cholecystectomy cli ps. There is a large ventral hernia present containing fat and small bowel loops without obstruction. No bowel obstruction, free air, free fluid or abscess. The appendix is normal. No evidence of signi ficant lymphadenopathy. No suspicious bony findings. IMPRESSION: No acute intra-abdominal or pelvic finding. Large ventral hernia containing fat and small bowel loops without obstruction or incarceration.
--- NOTE | 2022-08-09 13:17 | EDPHYS ---
Physician Documentation [facility] Name: Eloise Melendrez Age: 42 yrs Sex: Female : 1980 Arrival Date: 08/09/2022 Time: 10:57 Bed 12 Private MD: ED Physician Austin Mayo HPI: 08/09 11:15 This 42 yrs old Female presents to ER via Unassigned with complaints of rn Abdominal Pain. 11:15 The patient presents with abdominal pain in the left lower quadrant. Onset: The rn symptoms/episode began/occurred 2 day(s) ago. The symptoms do not radiate. Associated signs and symptoms: Pertinent positives: constipation, nausea, Pertinent negatives: blood in stools, chest pain, fever. The symptoms are described as sharp, stabbing. Modifying factors: The symptoms are alleviated by nothing, the symptoms are aggravated by touching the area, walking. Severity of pain: At its worst the pain was moderate in the emergency department the pain is unchanged. The patient has not experienced similar symptoms in the past. The patient has not recently seen a physician. 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 - Social history:: Smoking status: Patient reports the use of cigarette tobacco products, denies chronic smoking, but will smoke occasionally. - Family history:: not pertinent. - Hospitalizations: : No recent hospitalization is reported. ROS: 11:15 Constitutional: Negative for fever, chills, and weight loss, Eyes: Negative for injury, rn pain, redness, and discharge, Cardiovascular: Negative for chest pain, palpitations, and edema, Respiratory: Negative for shortness of breath, cough, wheezing, and pleuritic chest pain, Abdomen/GI: + abd pain and nausea/vomiting/constipation Back: Negative for injury and pain, : Negative for injury, bleeding, discharge, and swelling, MS/Extremity: Negative for injury and deformity, Skin: Negative for injury, rash, and discoloration, Neuro: Negative for headache, weakness, numbness, tingling, and seizure. Exam: 11:15 Constitutional: This is a well developed, well nourished patient who is awake, alert, rn and in no acute distress. Head/Face: Normocephalic, atraumatic. ENT: dry MM Cardiovascular: Regular rate and rhythm. No pulse deficits. Respiratory: No increased work of breathing, no retractions or nasal flaring. Abdomen/GI: soft, + mid and LLQ/suparpubic tenderness, no rebound, no masses, previous surgical wound mid and right lower abd Skin: Warm, dry MS/ Extremity: Pulses equal, no cyanosis. Neuro: Awake and alert, GCS 15 Vital Signs: 11:15 BP 142 / 88; Pulse 63; Resp 18 S; Temp 97.7(O); Pulse Ox 99% on R/A; Weight 120.2 kg; mb9 Height 5 ft. 0 in. ; 13:17 BP 140 / 76; Pulse 70; Resp 16; Pulse Ox 98% on R/A; mb9 11:15 Body Mass Index 51.75 (120.20 kg, 152.4 cm) 9 MDM: 11:02 Patient medically screened. rn 13:14 Differential diagnosis: appendicitis, bowel obstruction, diverticulitis, gastritis, rn non-specific abd pain, pancreatitis, Peptic Ulcer Disease, Ureterolithiasis. Data reviewed: vital signs, nurses notes, lab test result(s), radiologic studies, CT scan, and as a result, I will discharge patient. Counseling: I had a detailed discussion with the patient and/or guardian regarding: the historical points, exam findings, and any diagnostic results supporting the discharge/admit diagnosis, lab results, radiology results, the need for outpatient follow up, to return to the emergency department if symptoms worsen or persist or if there are any questions or concerns that arise at home. Response to treatment: the patient's symptoms have mildly improved after treatment, and as a result, I will discharge patient. Special discussion: Based on the patient's Hx, exam, and Dx evaluation, there is no indication for emergent surgery or inpatient Tx. It is understood by the patient/guardian that if the Sx's persist or worsen they need to return immediately for re-evaluation. I discussed with the patient/guardian in detail that at this point there is no indication for admission to the hospital. It is understood, however, that if the symptoms persist or worsen the patient needs to return immediately for re-evaluation. Based on the history and exam findings, there is no indication for further emergent testing or inpatient evaluation. I discussed with the patient/guardian the need to see the general surgeon for further evaluation of the symptoms. ED course: CT without acute findings, shows large ventral hernia with intestine and fat but no complication, will dc home with gen surgery f/u for evaluation of ventral hernia. Return precautions given and understood. . 08/09 11:15 Order name: CBC with Diff; Complete Time: 13: rn 08/09 11:15 Order name: CMP; Complete Time: 13: rn 08/09 11:15 Order name: Lipase; Complete Time: 13: rn 08/09 11:18 Order name: SARS RAPID; Complete Time: 13: rn 08/09 11:18 Order name: Flu; Complete Time: 13: rn 08/09 11:15 Order name: CT Abd/Pelvis - IV Contrast Only; Complete Time: 13:10 rn 08/09 11:15 Order name: IV Saline Lock; Complete Time: 12:15 rn 08/09 11:15 Order name: Labs collected and sent; Complete Time: 12:15 rn Administered Medications: 12:15 Drug: NS 0.9% IV 1000 ml Route: IV; Rate: 1 bolus; Site: left forearm; mb9 13:17 Follow up: Response: No adverse reaction; IV Status: Completed infusion mb9 12:15 Drug: Ondansetron IVP 4 mg Route: IVP; Site: left forearm; mb9 13:17 Follow up: Response: No adverse reaction mb9 Disposition Summary: 08/09/22 13:16 Discharge Ordered Location: Home rn Problem: new rn Symptoms: have improved rn Condition: Stable rn Diagnosis - Abdominal pain, unspecified rn - Ventral hernia without obstruction or gangrene rn Followup: rn - With: Jose Talley MD - When: As needed - Reason: Recheck today's complaints, Re-evaluation by your physician Discharge Instructions: - Abdominal Pain, Adult rn - Ventral Hernia rn - Discharge Summary Sheet mb9 Forms: - Medication Reconciliation Form rn - Thank You Letter rn - Antibiotic renal dialysis rn - Prescription Opioid Use rn - Work release form mb9 Signatures: Dispatcher [employer] EDAustin Jolley MD MD rn Calderon, Audri, RN RN aa5 Donta Falk, RN RN jl7 Blair, Chantel Simmons, RN RN mb9
--- NOTE | 2022-08-09 13:17 | ER ---
Nurse's Notes [facility] Name: Eloise Melendrez Age: 42 yrs Sex: Female : 1980 Arrival Date: 08/09/2022 Time: 10:57 Bed 12 Private MD: Diagnosis: Abdominal pain, unspecified;Ventral hernia without obstruction or gangrene Presentation: 08/09 11:15 Chief complaint: Patient states: left sided abd pain that began 2-3 days ago. Pt aa5 reports diarrhea and constipation. Pt denies vomiting. Pt also reports cough. 11:15 Coronavirus screen: cough unrelated to allergies, diarrhea. Ebola Screen: Patient aa5 denies travel to an Ebola-affected area in the 21 days before illness onset. Initial Sepsis Screen: Does the patient meet any 2 criteria? No. Patient's initial sepsis screen is negative. Does the patient have a suspected source of infection? No. Patient's initial sepsis screen is negative. Risk Assessment: Do you want to hurt yourself or someone else? Patient reports no desire to harm self or others. Onset of symptoms was August 2022. 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 - Social history:: Smoking status: Patient reports the use of cigarette tobacco products, denies chronic smoking, but will smoke occasionally. - Family history:: not pertinent. - Hospitalizations: : No recent hospitalization is reported. Screenin:16 [facility] ED Fall Risk Assessment (Adult) History of falling in the last 3 months, mb9 including since admission No falls in past 3 months (0 pts) Confusion or Disorientation No (0 pts) Intoxicated or Sedated No (0 pts) Impaired Gait No (0 pts) Mobility Assist Device Used No (0 pt) Altered Elimination No (0 pt) Score/Fall Risk Level 0 - 2 = Low Risk Oriented to surroundings, Maintained a safe environment, Educated pt \T\ family on fall prevention, incl call for assistance when getting out of bed. Abuse screen: Denies threats or abuse. Nutritional screening: No deficits noted. Tuberculosis screening: No symptoms or risk factors identified. Assessment: 12:15 General: Appears in no apparent distress. Behavior is calm, cooperative. Pain: mb9 Complains of pain in abdomen Pain radiates to LLQ Pain currently is 5 out of 10 on a pain scale. Quality of pain is described as throbbing, Pain began 2-3 months ago Is continuous. Neuro: Crisostomo Agitation-Sedation Scale (RASS): 0 - Alert and Calm Level of Consciousness is awake, alert, obeys commands, Oriented to person, place, time, situation, Appropriate for age. Cardiovascular: Patient's skin is warm and dry. Respiratory: Airway is patent Respiratory effort is even, unlabored, Respiratory pattern is regular, symmetrical. GI: Abdomen is round non-distended, Bowel sounds present X 4 quads. Abd is soft and non tender X 4 quads. Reports nausea. Derm: Skin is pink, warm \T\ dry. Musculoskeletal: Range of motion: intact in all extremities. 13:17 Reassessment: Patient and/or family updated on plan of care and expected duration. Pain mb9 level reassessed. Patient is alert, oriented x 3, equal unlabored respirations, skin warm/dry/pink. Patient states feeling better. Patient states symptoms have improved. Vital Signs: 11:15 BP 142 / 88; Pulse 63; Resp 18 S; Temp 97.7(O); Pulse Ox 99% on R/A; Weight 120.2 kg; mb9 Height 5 ft. 0 in. ; 13:17 BP 140 / 76; Pulse 70; Resp 16; Pulse Ox 98% on R/A; mb9 11:15 Body Mass Index 51.75 (120.20 kg, 152.4 cm) mb9 ED Course: 11:01 Patient arrived in ED. im 11:02 Austin Mayo MD is Attending Physician. rn 11:15 Arm band placed on. aa5 11:22 Triage completed. aa5 12:09 Chantel Pinto, MALINDA is Primary Nurse. mb9 12:15 CBC with Diff Sent. mb9 12:15 CMP Sent. mb9 12:15 Lipase Sent. mb9 12:15 Inserted saline lock: 20 gauge in left forearm, using aseptic technique. mb9 12:16 Placed in gown. Bed in low position. Call light in reach. Side rails up X 1. Client mb9 placed on continuous cardiac and pulse oximetry monitoring. NIBP monitoring applied. 12:17 No provider procedures requiring assistance completed. mb9 12:53 CT Abd/Pelvis - IV Contrast Only In Process Unspecified. EDMS 13:16 Jose Talley MD is Referral Physician. rn 13:22 IV discontinued, intact, bleeding controlled, No redness/swelling at site. Pressure mb9 dressing applied. Administered Medications: 12:15 Drug: NS 0.9% IV 1000 ml Route: IV; Rate: 1 bolus; Site: left forearm; mb9 13:17 Follow up: Response: No adverse reaction; IV Status: Completed infusion mb9 12:15 Drug: Ondansetron IVP 4 mg Route: IVP; Site: left forearm; mb9 13:17 Follow up: Response: No adverse reaction mb9 Medication: 12:17 VIS not applicable for this client. mb9 Outcome: 13:16 Discharge ordered by MD. rn 13:22 Discharged to home ambulatory. mb9 13:22 Condition: stable 13:22 Discharge instructions given to patient, Instructed on discharge instructions, follow up and referral plans. Demonstrated understanding of instructions, follow-up care, medications. 13:26 Patient left the ED. mb9 Signatures: Dispatcher [employer] EDMS Austin Mayo MD MD rn Calderon, Audri RN RN mary [id number] Chantel Pinto RN RN mb9 Tamra Stanton Corrections: (The following items were deleted from the chart) 11:22 11:15 Chief complaint: Patient states: left sided abd pain that began 2-3 days ago. Pt aa5 reports diarrhea and constipation. Pt denies vomiting. aa5 12:44 11:15 BP 142 / 88; Pulse 63bpm; Resp 18bpm; Spontaneous; Pulse Ox 99% RA; Temp 97.7F mb9 Oral; aa5
[2022-08-09 13:53] VITALS: TEMP 97.7
[2022-08-09 13:54] VITALS: BP 140/76; O2SAT 98
== END 2022-08-09 13:26 | disposition home or self-care (01) ==
LOC: ER 10:57
DX: K43.9 Ventral hernia without obstruction or gangrene (principal); F17.210 Nicotine dependence, cigarettes, uncomplicated; Z20.822 Contact with and (suspected) exposure to COVID-19
CPT/HCPCS: 96361; 85025; 36415; 83690; 80053; 87804 ×2; 74177; 96374; 99284; 87811; Q9967; J2405; J7030